=== PATIENT | female | born 1970 | race Caucasian/White ===

== ENCOUNTER → 2023-03-24 | Outpatient (CLI) | payer BC, OTHER ==
[~2023-03-24] MED LIST: ALLO300 PO; CEPH500 PO; LEVSOD125 PO; LEVSOD137 PO; MELO7.5 PO; MELOXICAM PO; METF500C PO; OXYACE5T PO; POTCHL20ER PO; PROM25 PO; TAMS.4ER PO
[2023-04-03 13:12] LABS: BRUSHITE 4.53 ratio (0.00-3.00); CALCIUM OXALATE 9.99 ratio (0.00-6.00); CALCIUM, URINE 42.9 mg/dL (Not Estab.); CALCIUM, URINE 643.5 mg/24 hr (0.0-320.0); CHLORIDE URINE 188 (38-210); CITRIC ACID (CITRATE) 895 mg/L (Not Estab.); CITRIC ACID(CITRATE) 1343 mg/24 hr (320-1240); CREATININE, URINE 1429.5 mg/24 hr (800.0-1800.0); CREATININE, URINE 95.3 mg/dL (Not Estab.); MAGNESIUM, URINE 6.5 mg/dL (Not Estab.); MONOSODIUM URATE 4.31 ratio (0.00-4.00); OSMOLALITY, URINE 634 (300-900); SODIUM, URINE 139 mmol/L (Not Estab.); SODIUM, URINE 209 (39-258); STRUVITE 0.01 ratio (0.00-1.00); URIC ACID 1.24 ratio (0.00-1.20); URINE VOLUME 1500 mL/24 hr (600-1600); URINE VOLUME (PRESERVATIVE) 1500 mL/24 hr (600-1600)
== END ==
LOC: LAB 08:15 → LAB SHORT 08:15
PROVIDERS: Urology
DX: N20.2 Calculus of kidney with calculus of ureter (principal); R82.991 Hypocitraturia
CPT/HCPCS: 81003; 82131; 82140; 82340; 82436; 82507; 82570; 83735; 83935; 83945; 84105; 84133; 84300; 84392; 84560

== ENCOUNTER → 2023-09-30 | Outpatient (CLI) | payer BC, OTHER ==
[2023-10-08 16:11] LABS: BRUSHITE 2.23 ratio (0.00-3.00); CALCIUM OXALATE 5.29 ratio (0.00-6.00); CALCIUM, URINE 44.8 mg/dL (Not Estab.); CHLORIDE URINE 171 (38-210); CITRIC ACID (CITRATE) 782 mg/L (Not Estab.); CITRIC ACID(CITRATE) 1173 mg/24 hr (320-1240); CREATININE, URINE 98.6 mg/dL (Not Estab.); MAGNESIUM, URINE 7.2 mg/dL (Not Estab.); MONOSODIUM URATE 2.92 ratio (0.00-4.00); OSMOLALITY, URINE 631 (300-900); SODIUM, URINE 119 mmol/L (Not Estab.); SODIUM, URINE 179 (39-258); STRUVITE 0.01 ratio (0.00-1.00); URIC ACID 2.44 ratio (0.00-1.20); URINE VOLUME 1500 mL/24 hr (600-1600); URINE VOLUME (PRESERVATIVE) 1500 mL/24 hr (600-1600)
== END ==
LOC: LAB 12:22 → LAB SHORT 12:22 → LAB FUT 05-18 16:45
PROVIDERS: Urology
DX: N20.1 Calculus of ureter (principal)
CPT/HCPCS: 81003; 82131; 82140; 82340; 82436; 82507; 82570; 83735; 83935; 83945; 84105; 84133; 84300; 84392; 84560

== ENCOUNTER 2025-07-13 21:40 | Emergency (ER) | payer OTHER ==
[~2025-07-13] VITALS: Ht 167.6 cm; Wt 103.0 kg
[2025-07-13] MEDS ORDERED: NS 1,000 ML IV SCH (22:10)
[2025-07-13] MEDS ORDERED: Ketorolac Tromethamine 30mg Vial IV ONE (22:10)
[2025-07-13] MEDS ORDERED: Ondansetron HCl 2 MG / ML 2ML Vial IV ONE (22:10)
[2025-07-13 22:27] LABS: BASOPHILS ABSOLUTE AUTO 0.08 K/mm3 (0.00-0.23); BASOPHILS PERCENT AUTO 1 % (0-2); EOSINOPHILS ABSOLUTE AUTO 0.16 K/mm3 (0.00-0.68); EOSINOPHILS PERCENT AUTO 2 % (0-6); Hematocrit 45.1 % (33.0-51.0); Hemoglobin 15.2 g/dL (11.5-16.0); IMMATURE GRAN ABSOLUTE AUTO 0.02 K/mm3 (0.00-0.10); IMMATURE GRAN PERCENT AUTO 0 % (0-1); LYMPHOCYTES ABSOLUTE AUTO 1.06 K/mm3 (0.84-5.20); LYMPHOCYTES PERCENT AUTO 14 % (21-46); MONOCYTES ABSOLUTE AUTO 0.47 K/mm3 (0.16-1.47); MONOCYTES PERCENT AUTO 6 % (4-13); Mean Corpuscular HGB Conc 33.7 g/dL (31.5-36.5); Mean Corpuscular Volume 88 fL (80-100); NEUTROPHILS ABSOLUTE AUTO 5.56 K/mm3 (1.96-9.15); NEUTROPHILS PERCENT AUTO 76 % (41-73); NRBC ABSOLUTE 0.00 K/mm3 (0.00-0.02); NRBC Auto 0.0 /100 WBC (0.0-0.2); Platelet Count 269 K/mm3 (150-400); RDW Coefficient Variation 12.4 % (11.7-14.2); RDW Standard Deviation 40.2 fL (35.1-46.3)
[2025-07-13 23:19] LABS: Alanine Aminotransfer (ALT/SGP 24.0 U/L (12-78); Albumin, Blood 3.9 g/dL (3.4-5.0); Albumin/Globulin Ratio 1.3 (0.8-1.8); Anion Gap 10.0 mmol/L (3-11); Aspartate Aminotrans (AST/SGOT 20.0 U/L (12-37); Bilirubin, Total 0.5 mg/dL (0.1-1.0); Blood Urea Nitrogen 28.0 mg/dL (8-24); CO2, Blood 27.0 mmol/L (21-32); Calcium, Blood 9.4 mg/dL (8.5-10.1); Chloride, Blood 106.0 mmol/L (98-108); Creatinine, Blood 0.87 mg/dL (0.40-1.00); Globulin, Blood 3.1 g/dL (2.2-4.0); Glucose, Blood 176.0 mg/dL (70-99); Potassium, Blood 3.9 mmol/L (3.5-5.5); Sodium, Blood 139.0 mmol/L (136-145); Total Protein, Blood 7.0 g/dL (6.4-8.2)
[2025-07-14 02:24] LABS: Source, Urine Clean Catch
[2025-07-14 02:28] LABS: Bilirubin, Urine Neg (Neg); Glucose Qualitative, Urine 2+ (Neg); Ketones, Urine 2+ (Neg); Leukocyte Esterase, Urine Neg (Neg); Protein, Urine 2+ (Neg); Specific Gravity, Urine 1.025 (1.003-1.022); Urobilinogen, Urine NORM (Normal)
[2025-07-14 02:34] LABS: Color, Urine Yellow (P-Yellow)
[2025-07-14 02:35] LABS: White Blood Cells, Urine Not Seen /hpf (0-5)
[2025-07-14] MEDS ORDERED: RX Prepack 6 Tabs Oxycodone 5mg UD ONE (03:10)
[2025-07-14 03:15] VITALS: BP 114/67
== END 2025-07-14 03:28 | disposition home or self-care (01) ==
LOC: ER 21:40
PROVIDERS: Student in an Organized Health Care Education/Training Program
DX: R10.9 Unspecified abdominal pain (principal); N20.0 Calculus of kidney; D27.1 Benign neoplasm of left ovary; K80.20 Calculus of gallbladder without cholecystitis without obstruction; E11.9 Type 2 diabetes mellitus without complications; Z88.5 Allergy status to narcotic agent; Z79.84 Long term (current) use of oral hypoglycemic drugs; Z79.890 Hormone replacement therapy; Z79.1 Long term (current) use of non-steroidal anti-inflammatories (NSAID); Z79.899 Other long term (current) drug therapy
CPT/HCPCS: 74176; 80053; 81001; 85025; 96361; 96374; 96375; 99284-25; A9270; J1885; J2405; J7030